=== PATIENT | female | born 1945 ===

== ENCOUNTER 2019-12-11 15:39 | Inpatient (IN) ==
[2019-12-11] MEDS ORDERED: GLUCAGON 1 MG VIAL IM PRN (17:27)
[2019-12-11] MEDS ORDERED: DEXTROSE 50% 25 GM/50 ML VIAL IV PRN (17:27)
[2019-12-11] MEDS ORDERED: POTASSIUM CHLORIDE 20 MEQ TABLET PO PRN ×2 (17:33)
[2019-12-11] MEDS ORDERED: MAGNESIUM SULF RIDER 4 GM in PREMIX 1 EACH IV PRN (17:33)
[2019-12-11] MEDS ORDERED: MAGNESIUM SULF RIDER 2 GM in PREMIX 1 EACH IV PRN (17:33)
[2019-12-11] MEDS ORDERED: ONDANSETRON 4 MG/2 ML VIAL IV PRN (17:33)
[2019-12-11 18:14] LABS: Basophils % 0.4 % (0.0-0.8); Eosinophils # 0.1 10*3/uL (0.0-0.87); Eosinophils % 0.7 % (0.00-10.9); Hematocrit 40.9 VOL% (35.7-47.0); Immature Granulocytes % 0.6 %; Immature Granulocytes Absolute 0.04 #; Lymphocytes # 1.5 10*3/uL (1.4-4.0); Lymphocytes % 22.2 % (21.3-54.2); Mean Corpuscular HGB Conc 34.2 GM/DL (32-36); Mean Corpuscular Volume 94.9 FL (87-102); Mean Platelet Volume 9.4 FL (9.6-12.0); Monocytes % 6.2 % (1.7-12.7); Neutrophils % 69.9 % (38.7-73.9); Platelet Count 212 T/CUMM (130-400); Red Blood Count 4.31 MC/CUMM (3.8-5.5); Red Cell Distribution Width 13.2 % (9.3-17.3); White Blood Count 6.8 T/CUMM (4-12)
[2019-12-11] MEDS: SODIUM CHLORIDE 0.9% 1,000 ML IV SCH (18:15)
[2019-12-11] MEDS: ENOXAPARIN 60 MG/0.6 ML SYRINGE SUBCUT SCH (18:15)
[2019-12-11 18:46] LABS: Thyroid Stimulating Hormone 0.883 uIU/ml (0.358-3.74)
[2019-12-11 18:56] LABS: Alanine Aminotransferase 51 U/L (13-56); Albumin 3.6 G/DL (3.4-5.0); Alkaline Phosphatase 119 U/L (45-117); Aspartate Amino Transferase 43 U/L (0-37); Bilirubin,Total < 0.39 MG/DL (0.2-1.0); Blood Urea Nitrogen 13 MG/DL (7-18); Calcium 8.4 MG/DL (8.5-10.1); Estimated Glom Filtration Rate 78 ML/MIN; Glucose 155 MG/DL (74-106); Osmolality,Calculated 283.3 MOS/KG (273-304); Total Protein 6.9 G/DL (6.4-8.3)
[2019-12-11] MEDS ORDERED: TICAGRELOR 90 MG TABLET PO ONE (19:04)
[2019-12-11] MEDS ORDERED: ATORVASTATIN 40 MG TABLET PO ONE (19:07)
[2019-12-11 20:50] LABS: CKMB % 3.3 %
[2019-12-11] MEDS: METOPROLOL TARTRATE 25 MG TABLET PO SCH (20:51)
[2019-12-11] MEDS: INSULIN LISPRO 100 UNIT/ML SUBCUT SCH (20:52)
[2019-12-11] MEDS: ATORVASTATIN 40 MG TABLET PO SCH (20:52)
[2019-12-11 20:54] LABS: Troponin I 2.27 NG/ML (0.00-0.045)
[2019-12-12] MEDS: SODIUM CHLORIDE 0.9% 1,000 ML IV SCH ×4 (03:32→22:10)
[2019-12-12 06:04] LABS: Basophils % 0.5 % (0.0-0.8); Eosinophils # 0.1 10*3/uL (0.0-0.87); Eosinophils % 1.2 % (0.00-10.9); Hemoglobin 13.7 GM/DL (12.0-16.0); Immature Granulocytes % 0.9 %; Immature Granulocytes Absolute 0.05 #; Lymphocytes # 1.4 10*3/uL (1.4-4.0); Lymphocytes % 23.9 % (21.3-54.2); Mean Corpuscular HGB Conc 33.4 GM/DL (32-36); Mean Corpuscular Volume 94.7 FL (87-102); Mean Platelet Volume 9.6 FL (9.6-12.0); Monocytes % 7.3 % (1.7-12.7); Neutrophils % 66.2 % (38.7-73.9); Platelet Count 196 T/CUMM (130-400); Red Blood Count 4.33 MC/CUMM (3.8-5.5); Red Cell Distribution Width 13.2 % (9.3-17.3); White Blood Count 5.8 T/CUMM (4-12)
[2019-12-12 06:27] LABS: CKMB % 3.1 %
[2019-12-12 06:28] LABS: Bilirubin,Total 0.9 MG/DL (0.2-1.0); Osmolality,Calculated 281.1 MOS/KG (273-304); Risk Ratio 3.71; Total Protein 6.7 G/DL (6.4-8.3); VLDL CHOLESTEROL 35.4 MG/DL
[2019-12-12 06:28] LABS: Troponin I 1.88 NG/ML (0.00-0.045)
[2019-12-12] MEDS: ENOXAPARIN 60 MG/0.6 ML SYRINGE SUBCUT SCH (06:49)
[2019-12-12] MEDS: INSULIN LISPRO 100 UNIT/ML SUBCUT SCH ×4 (08:05→22:10)
[2019-12-12 08:06] LABS: Bilirubin,Urine Negative (Negative); Blood, Urine Negative (Negative); Glucose,Urine (UA) Negative (Negative); Ketones,Urine Negative (Negative); Mucus,Urine Occasional /LPF (Occasional); Nitrite,Urine Negative (Negative); Protein,Urine Negative; RBC,Urine <1 /HPF (0-4); Urine Appearance CLEAR (Clear); Urine Color Straw (Yellow); Urine Specific Gravity 1.005 (1.001-1.035); Urine Urobilinogen < 2.0 EU/DL (0.2-1.0); WBC,Urine <1 /HPF (0-6)
[2019-12-12] MEDS ORDERED: TICAGRELOR 90 MG TABLET PO SCH (09:00)
[2019-12-12] MEDS: METOPROLOL TARTRATE 25 MG TABLET PO SCH ×2 (09:39→22:10)
[2019-12-12] MEDS: LOSARTAN 25 MG TABLET PO SCH (09:39)
[2019-12-12] MEDS: ASPIRIN EC 81 MG TABLET PO SCH (09:39)
[2019-12-12] MEDS: PANTOPRAZOLE 40 MG TABLET PO SCH (09:39)
[2019-12-12] MEDS ORDERED: HEPARIN/NACL 0.9% 2 UNITS/ML 1,000 ML IV ONE (12:44)
[2019-12-12] MEDS ORDERED: LIDOCAINE 1% 20 ML VIAL ONE (12:44)
[2019-12-12] MEDS ORDERED: DIAZEPAM 5 MG TABLET PO ONE (12:55)
[2019-12-12] MEDS ORDERED: diphenhydrAMINE CAP 25 MG CAPSULE PO ONE (12:55)
[2019-12-12] MEDS ORDERED: fentaNYL 100 MCG/2 ML VIAL ONE (13:14)
[2019-12-12] MEDS ORDERED: MIDAZOLAM 2 MG/2 ML VIAL ONE (13:14)
[2019-12-12] MEDS ORDERED: DEXTROSE 50% 25 GM/50 ML VIAL IV PRN (14:46)
[2019-12-12] MEDS: MORPHINE 4 MG/1 ML VIAL IV PRN (18:54)
[2019-12-12] MEDS: ALUM/MAG/SIMETH/LIDO VISC 1:1 30 ML BOTTLE PO PRN (19:02)
[2019-12-12 20:15] LABS: Troponin I 0.795 NG/ML (0.00-0.045)
[2019-12-12] MEDS ORDERED: NITROGLYCERIN 2% OINT 1 INCH/GM PACK TOP PRN (20:32)
[2019-12-12] MEDS ORDERED: NITROGLYCERIN SL 0.4 MG TABLET SL ONE (20:42)
[2019-12-12] MEDS: NITROGLYCERIN SL 0.4 MG TABLET SL PRN (20:43)
[2019-12-12] MEDS: RANOLAZINE 500 MG TABLET PO SCH (22:10)
[2019-12-12] MEDS: ATORVASTATIN 40 MG TABLET PO SCH (22:10)
[2019-12-12] MEDS ORDERED: SODIUM CHLORIDE 0.9% 500 ML IV ONE (22:27)
[2019-12-13 05:10] LABS: Basophils % 0.3 % (0.0-0.8); Eosinophils % 0.5 % (0.00-10.9); Hematocrit 38.1 VOL% (35.7-47.0); Hemoglobin 12.9 GM/DL (12.0-16.0); Immature Granulocytes % 0.8 %; Immature Granulocytes Absolute 0.05 #; Lymphocytes # 1.3 10*3/uL (1.4-4.0); Lymphocytes % 19.9 % (21.3-54.2); Mean Corpuscular HGB Conc 33.9 GM/DL (32-36); Mean Corpuscular Volume 95.5 FL (87-102); Mean Platelet Volume 9.7 FL (9.6-12.0); Monocytes % 8.8 % (1.7-12.7); Neutrophils % 69.7 % (38.7-73.9); Platelet Count 173 T/CUMM (130-400); Red Blood Count 3.99 MC/CUMM (3.8-5.5); Red Cell Distribution Width 13.2 % (9.3-17.3); White Blood Count 6.4 T/CUMM (4-12)
[2019-12-13 05:35] LABS: Calcium 7.9 MG/DL (8.5-10.1); Osmolality,Calculated 280.3 MOS/KG (273-304)
[2019-12-13 05:54] LABS: Albumin 2.9 G/DL (3.4-5.0); Bilirubin,Total 0.5 MG/DL (0.2-1.0); Calcium 8.1 MG/DL (8.5-10.1); Osmolality,Calculated 275.5 MOS/KG (273-304); Total Protein 6.3 G/DL (6.4-8.3)
[2019-12-13] MEDS: INSULIN LISPRO 100 UNIT/ML SUBCUT SCH ×4 (08:23→21:00)
[2019-12-13] MEDS: MORPHINE 4 MG/1 ML VIAL IV PRN ×2 (09:06→21:04)
[2019-12-13] MEDS: ENOXAPARIN 40 MG/0.4 ML SYRINGE SUBCUT SCH (09:11)
[2019-12-13] MEDS: METOPROLOL TARTRATE 25 MG TABLET PO SCH ×2 (09:12→21:04)
[2019-12-13] MEDS: ISOSORBIDE MONONITRATE 30 MG TABLET PO SCH (09:12)
[2019-12-13] MEDS: RANOLAZINE 500 MG TABLET PO SCH ×2 (09:12→21:04)
[2019-12-13] MEDS: DONEPEZIL 5 MG TABLET PO SCH (09:13)
[2019-12-13] MEDS: PANTOPRAZOLE 40 MG TABLET PO SCH (09:13)
[2019-12-13] MEDS: LOSARTAN 25 MG TABLET PO SCH (09:14)
[2019-12-13] MEDS: ASPIRIN EC 81 MG TABLET PO SCH (09:16)
[2019-12-13] MEDS: SODIUM CHLORIDE 0.9% 1,000 ML IV SCH ×2 (10:15→23:36)
[2019-12-13] MEDS: ATORVASTATIN 40 MG TABLET PO SCH (21:04)
[2019-12-14] MEDS: MORPHINE 4 MG/1 ML VIAL IV PRN ×2 (03:26→08:54)
[2019-12-14 05:28] LABS: Basophils % 0.3 % (0.0-0.8); Eosinophils # 0.1 10*3/uL (0.0-0.87); Eosinophils % 0.9 % (0.00-10.9); Hematocrit 36.9 VOL% (35.7-47.0); Hemoglobin 12.5 GM/DL (12.0-16.0); Immature Granulocytes % 0.8 %; Immature Granulocytes Absolute 0.05 #; Lymphocytes % 15.6 % (21.3-54.2); Mean Corpuscular HGB Conc 33.9 GM/DL (32-36); Mean Corpuscular Volume 94.1 FL (87-102); Mean Platelet Volume 9.7 FL (9.6-12.0); Monocytes % 7.7 % (1.7-12.7); Neutrophils % 74.7 % (38.7-73.9); Platelet Count 168 T/CUMM (130-400); Red Blood Count 3.92 MC/CUMM (3.8-5.5); Red Cell Distribution Width 13.2 % (9.3-17.3); White Blood Count 6.5 T/CUMM (4-12)
[2019-12-14 06:03] LABS: Calcium 7.9 MG/DL (8.5-10.1); Osmolality,Calculated 277.5 MOS/KG (273-304)
[2019-12-14] MEDS: ENOXAPARIN 40 MG/0.4 ML SYRINGE SUBCUT SCH (08:55)
[2019-12-14] MEDS: RANOLAZINE 500 MG TABLET PO SCH ×2 (08:56→21:03)
[2019-12-14] MEDS: ASPIRIN EC 81 MG TABLET PO SCH (08:56)
[2019-12-14] MEDS: ISOSORBIDE MONONITRATE 30 MG TABLET PO SCH (08:56)
[2019-12-14] MEDS: DONEPEZIL 5 MG TABLET PO SCH (08:56)
[2019-12-14] MEDS: INSULIN LISPRO 100 UNIT/ML SUBCUT SCH ×4 (08:56→21:04)
[2019-12-14] MEDS: LOSARTAN 25 MG TABLET PO SCH (08:56)
[2019-12-14] MEDS: PANTOPRAZOLE 40 MG TABLET PO SCH (08:56)
[2019-12-14] MEDS: METOPROLOL TARTRATE 25 MG TABLET PO SCH ×2 (08:57→21:03)
[2019-12-14] MEDS: ALUM/MAG/SIMETH/LIDO VISC 1:1 30 ML BOTTLE PO PRN (09:53)
[2019-12-14] MEDS: NITROGLYCERIN SL 0.4 MG TABLET SL PRN (09:53)
[2019-12-14] MEDS ORDERED: FUROSEMIDE 20 MG/2 ML VIAL IV ONE (10:25)
[2019-12-14] MEDS: ACETAMINOPHEN 325 MG TABLET PO PRN (21:04)
[2019-12-14] MEDS: ATORVASTATIN 40 MG TABLET PO SCH (21:04)
[2019-12-15 05:51] LABS: Basophils % 0.3 % (0.0-0.8); Eosinophils # 0.1 10*3/uL (0.0-0.87); Eosinophils % 0.8 % (0.00-10.9); Hematocrit 35.7 VOL% (35.7-47.0); Hemoglobin 11.9 GM/DL (12.0-16.0); Immature Granulocytes % 0.5 %; Immature Granulocytes Absolute 0.03 #; Lymphocytes # 1.3 10*3/uL (1.4-4.0); Lymphocytes % 21.2 % (21.3-54.2); Mean Corpuscular HGB Conc 33.3 GM/DL (32-36); Mean Corpuscular Volume 94.2 FL (87-102); Mean Platelet Volume 9.8 FL (9.6-12.0); Monocytes % 7.7 % (1.7-12.7); Neutrophils % 69.5 % (38.7-73.9); Platelet Count 173 T/CUMM (130-400); Red Blood Count 3.79 MC/CUMM (3.8-5.5); Red Cell Distribution Width 13.2 % (9.3-17.3); White Blood Count 6.2 T/CUMM (4-12)
[2019-12-15 06:16] LABS: Calcium 8.5 MG/DL (8.5-10.1); Osmolality,Calculated 278.4 MOS/KG (273-304)
[2019-12-15] MEDS: ASPIRIN EC 81 MG TABLET PO SCH (09:19)
[2019-12-15] MEDS: RANOLAZINE 500 MG TABLET PO SCH ×2 (09:19→21:08)
[2019-12-15] MEDS: PANTOPRAZOLE 40 MG TABLET PO SCH (09:19)
[2019-12-15] MEDS: ISOSORBIDE MONONITRATE 30 MG TABLET PO SCH (09:20)
[2019-12-15] MEDS: DONEPEZIL 5 MG TABLET PO SCH (09:20)
[2019-12-15] MEDS: ENOXAPARIN 40 MG/0.4 ML SYRINGE SUBCUT SCH (09:21)
[2019-12-15] MEDS: METOPROLOL TARTRATE 25 MG TABLET PO SCH ×2 (09:21→21:08)
[2019-12-15] MEDS: LOSARTAN 25 MG TABLET PO SCH (09:21)
[2019-12-15] MEDS: INSULIN LISPRO 100 UNIT/ML SUBCUT SCH ×4 (09:28→21:09)
[2019-12-15] MEDS: ASCORBIC ACID 500 MG TABLET PO SCH (21:08)
[2019-12-15] MEDS: ATORVASTATIN 40 MG TABLET PO SCH (21:08)
[2019-12-15] MEDS: ACETAMINOPHEN 325 MG TABLET PO PRN (21:52)
[2019-12-16] MEDS: ALUM/MAG/SIMETH/LIDO VISC 1:1 30 ML BOTTLE PO PRN (05:08)
[2019-12-16 05:59] LABS: Basophils % 0.5 % (0.0-0.8); Eosinophils # 0.1 10*3/uL (0.0-0.87); Hematocrit 38.1 VOL% (35.7-47.0); Hemoglobin 13.1 GM/DL (12.0-16.0); Immature Granulocytes % 0.7 %; Immature Granulocytes Absolute 0.04 #; Lymphocytes # 1.4 10*3/uL (1.4-4.0); Lymphocytes % 22.9 % (21.3-54.2); Mean Corpuscular HGB Conc 34.4 GM/DL (32-36); Mean Corpuscular Volume 92.7 FL (87-102); Mean Platelet Volume 9.8 FL (9.6-12.0); Monocytes % 8.4 % (1.7-12.7); Neutrophils % 66.5 % (38.7-73.9); Platelet Count 177 T/CUMM (130-400); Red Blood Count 4.11 MC/CUMM (3.8-5.5); Red Cell Distribution Width 13.2 % (9.3-17.3); White Blood Count 5.9 T/CUMM (4-12)
[2019-12-16 06:20] LABS: Calcium 8.7 MG/DL (8.5-10.1); Osmolality,Calculated 279.4 MOS/KG (273-304)
[2019-12-16] MEDS: INSULIN LISPRO 100 UNIT/ML SUBCUT SCH ×4 (09:02→20:57)
[2019-12-16] MEDS: ENOXAPARIN 40 MG/0.4 ML SYRINGE SUBCUT SCH (09:04)
[2019-12-16] MEDS: RANOLAZINE 500 MG TABLET PO SCH ×2 (09:04→20:53)
[2019-12-16] MEDS: ASPIRIN EC 81 MG TABLET PO SCH (09:05)
[2019-12-16] MEDS: METOPROLOL TARTRATE 25 MG TABLET PO SCH ×2 (09:05→20:52)
[2019-12-16] MEDS: ASCORBIC ACID 500 MG TABLET PO SCH ×2 (09:05→20:52)
[2019-12-16] MEDS: DONEPEZIL 5 MG TABLET PO SCH (09:06)
[2019-12-16] MEDS: LOSARTAN 25 MG TABLET PO SCH (09:06)
[2019-12-16] MEDS: ISOSORBIDE MONONITRATE 30 MG TABLET PO SCH (09:06)
[2019-12-16] MEDS: PANTOPRAZOLE 40 MG TABLET PO SCH (09:06)
[2019-12-16] MEDS: ATORVASTATIN 40 MG TABLET PO SCH (20:53)
[2019-12-16] MEDS: ACETAMINOPHEN 325 MG TABLET PO PRN (20:53)
[2019-12-16] MEDS: MORPHINE 4 MG/1 ML VIAL IV PRN (22:22)
[2019-12-17 05:32] LABS: Basophils % 0.4 % (0.0-0.8); Eosinophils # 0.1 10*3/uL (0.0-0.87); Eosinophils % 1.4 % (0.00-10.9); Hematocrit 36.5 VOL% (35.7-47.0); Hemoglobin 12.5 GM/DL (12.0-16.0); Immature Granulocytes % 0.4 %; Immature Granulocytes Absolute 0.02 #; Lymphocytes # 1.6 10*3/uL (1.4-4.0); Lymphocytes % 28.4 % (21.3-54.2); Mean Corpuscular HGB Conc 34.2 GM/DL (32-36); Mean Corpuscular Volume 92.9 FL (87-102); Mean Platelet Volume 10.1 FL (9.6-12.0); Monocytes % 7.5 % (1.7-12.7); Neutrophils % 61.9 % (38.7-73.9); Platelet Count 176 T/CUMM (130-400); Red Blood Count 3.93 MC/CUMM (3.8-5.5); Red Cell Distribution Width 13.2 % (9.3-17.3); White Blood Count 5.7 T/CUMM (4-12)
[2019-12-17 05:55] LABS: Calcium 8.3 MG/DL (8.5-10.1); Osmolality,Calculated 278.4 MOS/KG (273-304)
[2019-12-17 06:04] LABS: Albumin 3.1 G/DL (3.4-5.0); Bilirubin,Total 0.8 MG/DL (0.2-1.0); Calcium 8.8 MG/DL (8.5-10.1); Osmolality,Calculated 276.5 MOS/KG (273-304); Total Protein 6.4 G/DL (6.4-8.3)
[2019-12-17 09:07] LABS: ABG Oxygen Saturation 98.8 % (95-100); ABG PCO2 37.7 MM HG (35-48); ABG PH 7.474 (7.35-7.45); ABG TCO2 24.1 MMOL/L (23-27); Allen Test Negative
[2019-12-17] MEDS: NITROGLYCERIN SL 0.4 MG TABLET SL PRN ×3 (10:05→10:15)
[2019-12-17] MEDS: PANTOPRAZOLE 40 MG TABLET PO SCH (10:17)
[2019-12-17] MEDS: ASCORBIC ACID 500 MG TABLET PO SCH ×2 (10:17→21:41)
[2019-12-17] MEDS ORDERED: POTASSIUM CHLORIDE 20 MEQ TABLET PO ONE (10:17)
[2019-12-17] MEDS: LOSARTAN 25 MG TABLET PO SCH (10:18)
[2019-12-17] MEDS: DONEPEZIL 5 MG TABLET PO SCH (10:18)
[2019-12-17] MEDS: ISOSORBIDE MONONITRATE 30 MG TABLET PO SCH (10:18)
[2019-12-17] MEDS: RANOLAZINE 500 MG TABLET PO SCH ×2 (10:19→21:42)
[2019-12-17] MEDS: ALUM/MAG/SIMETH/LIDO VISC 1:1 30 ML BOTTLE PO PRN ×2 (10:23→19:29)
[2019-12-17] MEDS: CHLORHEXIDINE 4% SOLN 118 ML BOTTLE TOP SCH ×3 (10:25→21:44)
[2019-12-17] MEDS: ASPIRIN EC 81 MG TABLET PO SCH (10:25)
[2019-12-17] MEDS: METOPROLOL TARTRATE 25 MG TABLET PO SCH ×2 (10:25→21:41)
[2019-12-17] MEDS: INSULIN LISPRO 100 UNIT/ML SUBCUT SCH ×4 (10:25→21:43)
[2019-12-17] MEDS: SODIUM CHLORIDE 0.9% 1,000 ML IV SCH (10:26)
[2019-12-17] MEDS: CHLORHEXIDINE 0.12% ORAL RINSE 60 ML BOTTLE SWISH/SPIT SCH ×2 (10:26→21:43)
[2019-12-17] MEDS: MORPHINE 4 MG/1 ML VIAL IV PRN (19:29)
[2019-12-17] MEDS: ACETAMINOPHEN 325 MG TABLET PO PRN (21:42)
[2019-12-17] MEDS: ATORVASTATIN 40 MG TABLET PO SCH (21:43)
[2019-12-18] MEDS ORDERED: PAPAVERINE 60 MG/2 ML VIAL ONE (04:22)
[2019-12-18] MEDS ORDERED: VANCOMYCIN 1,000 MG VIAL ONE (04:23)
[2019-12-18] MEDS ORDERED: VANCOMYCIN 500 MG VIAL ONE (04:23)
[2019-12-18] MEDS ORDERED: VANCOMYCIN INJ 1,000 MG in SODIUM CHLORIDE 0.9% 250 ML IV ONE (05:00)
[2019-12-18] MEDS ORDERED: DIAZEPAM 5 MG TABLET PO ONE (05:30)
[2019-12-18] MEDS ORDERED: FAMOTIDINE 20 MG TABLET PO ONE (05:30)
[2019-12-18 05:46] LABS: Basophils % 0.4 % (0.0-0.8); Eosinophils # 0.1 10*3/uL (0.0-0.87); Eosinophils % 0.7 % (0.00-10.9); Hematocrit 39.5 VOL% (35.7-47.0); Hemoglobin 13.6 GM/DL (12.0-16.0); Immature Granulocytes % 0.5 %; Immature Granulocytes Absolute 0.04 #; Lymphocytes # 1.7 10*3/uL (1.4-4.0); Mean Corpuscular HGB Conc 34.4 GM/DL (32-36); Mean Corpuscular Volume 93.4 FL (87-102); Monocytes % 7.1 % (1.7-12.7); Neutrophils % 69.3 % (38.7-73.9); Platelet Count 212 T/CUMM (130-400); Red Blood Count 4.23 MC/CUMM (3.8-5.5); Red Cell Distribution Width 13.3 % (9.3-17.3); White Blood Count 7.5 T/CUMM (4-12)
[2019-12-18] MEDS: METOPROLOL TARTRATE 25 MG TABLET PO SCH ×2 (05:48→09:00)
[2019-12-18] MEDS ORDERED: CALCIUM CHLORIDE 1,000 MG/10 ML VIAL IV ONE ×2 (05:53→12:29)
[2019-12-18] MEDS ORDERED: SUFentanil 250 MCG/5 ML AMP ONE (05:54)
[2019-12-18] MEDS ORDERED: VECURONIUM 10 MG VIAL IV ONE (05:54)
[2019-12-18] MEDS ORDERED: MINERAL OIL/PETROLATUM OPH OINT 3.5 GM TUBE ONE (05:54)
[2019-12-18] MEDS ORDERED: diphenhydrAMINE 50 MG/1 ML VIAL ONE (05:54)
[2019-12-18] MEDS ORDERED: MIDAZOLAM 10 MG/2 ML VIAL ONE ×2 (05:54)
[2019-12-18] MEDS ORDERED: AMINOCAPROIC ACID 5,000 MG/20 ML VIAL ONE (05:54)
[2019-12-18] MEDS ORDERED: FAMOTIDINE 20 MG/2 ML VIAL IV ONE (05:55)
[2019-12-18] MEDS ORDERED: LIDOCAINE 2% 5 ML VIAL ONE ×2 (05:55→10:46)
[2019-12-18 06:03] LABS: Osmolality,Calculated 276.7 MOS/KG (273-304)
[2019-12-18] MEDS: INSULIN LISPRO 100 UNIT/ML SUBCUT SCH ×2 (07:30→11:30)
[2019-12-18] MEDS: SODIUM CHLORIDE 0.9% 1,000 ML IV SCH (07:30)
[2019-12-18 07:41] LABS: ABG HCO3 24.5 MMOL/L (20-26); ABG PCO2 45.1 MM HG (35-48); ABG PH 7.364 (7.35-7.45); ABG TCO2 23.1 MMOL/L (23-27); Glucose Heart Surgery 167 MG/DL (74-106); Ionized Calcium Arterial 1.42 MMOL/L (1.21-1.46); PCO2 Patient Temp Arterial 45.1 MMHG; PH Patient Temp Arterial 7.364; Patient Temperature 37 CELCIUS; Potassium Heart/CVR 4.1 MMOL/L (3.5-5.1); Sodium Heart/CVR 139 MMOL/L (135-145)
[2019-12-18] MEDS ORDERED: NITROPRUSSIDE 50 MG/2 ML VIAL ONE (08:04)
[2019-12-18] MEDS ORDERED: PHENYLEPHRINE DRIP 40 MG/250 ML PREMIX IV ONE (08:05)
[2019-12-18] MEDS ORDERED: POTASSIUM CHLORIDE RIDER 100 ML IV ONE (08:05)
[2019-12-18] MEDS ORDERED: SODIUM BICARBONATE 50 MEQ/50 ML VIAL IV ONE ×2 (08:05→10:47)
[2019-12-18 08:11] LABS: Bilirubin,Urine Negative (Negative); Blood, Urine Negative (Negative); Glucose,Urine (UA) Negative (Negative); Ketones,Urine 20 mg/dL (Negative); Mucus,Urine Occasional /LPF (Occasional); Nitrite,Urine Negative (Negative); Protein,Urine Negative; RBC,Urine 1 /HPF (0-4); Squamous Epithelial Cell,Urine Occasional /HPF (0-10); Urine Appearance CLEAR (Clear); Urine Color Yellow (Yellow); Urine Specific Gravity 1.016 (1.001-1.035); Urine Urobilinogen < 2.0 EU/DL (0.2-1.0); WBC,Urine 1 /HPF (0-6)
[2019-12-18 08:33] LABS: PCO2 Patient Temp Venous 35.3 MM HG; PH Patient Temp Venous 7.446; PO2 Patient Temp Venous 39.9 MM HG; Potassium Heart/CVR 4.9 MMOL/L (3.5-5.1); VBG Base Excess 0.5 MEQ/L (0-4); VBG HCO3 24.7 MEQ/L (24-28); VBG Oxygen Saturation 78.3 %; VBG PH 7.432; VBG PO2 42.8 MMHG (17-40)
[2019-12-18 08:34] LABS: Hematocrit Heart Surgery 17.3 PERCENT (37-47); Hemoglobin Heart Surgery 5.5 G/DL (12.0-16.0)
[2019-12-18] MEDS: RANOLAZINE 500 MG TABLET PO SCH (09:00)
[2019-12-18] MEDS: ISOSORBIDE MONONITRATE 30 MG TABLET PO SCH (09:00)
[2019-12-18] MEDS: ASPIRIN EC 81 MG TABLET PO SCH (09:00)
[2019-12-18] MEDS: PANTOPRAZOLE 40 MG TABLET PO SCH (09:00)
[2019-12-18] MEDS: DONEPEZIL 5 MG TABLET PO SCH (09:00)
[2019-12-18] MEDS: ASCORBIC ACID 500 MG TABLET PO SCH (09:00)
[2019-12-18] MEDS: CHLORHEXIDINE 0.12% ORAL RINSE 60 ML BOTTLE SWISH/SPIT SCH ×2 (09:00→21:46)
[2019-12-18] MEDS: LOSARTAN 25 MG TABLET PO SCH (09:00)
[2019-12-18 09:04] LABS: Hematocrit Heart Surgery 20.2 PERCENT (37-47); PCO2 Patient Temp Venous 27.7 MM HG; PH Patient Temp Venous 7.541; PO2 Patient Temp Venous 33.8 MM HG; Potassium Heart/CVR 4.4 MMOL/L (3.5-5.1); VBG Base Excess 1.6 MEQ/L (0-4); VBG HCO3 25.7 MEQ/L (24-28); VBG Oxygen Saturation 80.3 %; VBG PH 7.496; VBG PO2 41.7 MMHG (17-40)
[2019-12-18 09:05] LABS: Hemoglobin Heart Surgery 6.4 G/DL (12.0-16.0)
[2019-12-18 09:29] LABS: Hematocrit Heart Surgery 27.3 PERCENT (37-47); Hemoglobin Heart Surgery 8.8 G/DL (12.0-16.0); PCO2 Patient Temp Venous 25.6 MM HG; PH Patient Temp Venous 7.533; PO2 Patient Temp Venous 35.6 MM HG; Potassium Heart/CVR 4.6 MMOL/L (3.5-5.1); VBG Base Excess -0.4 MEQ/L (0-4); VBG HCO3 23.9 MEQ/L (24-28); VBG Oxygen Saturation 85.1 %; VBG PCO2 29.5 MMHG (41-51); VBG PH 7.487; VBG PO2 43.8 MMHG (17-40)
[2019-12-18 09:58] LABS: Hematocrit Heart Surgery 28.9 PERCENT (37-47); Hemoglobin Heart Surgery 9.3 G/DL (12.0-16.0); PCO2 Patient Temp Venous 28.6 MM HG; PH Patient Temp Venous 7.509; PO2 Patient Temp Venous 36.9 MM HG; Potassium Heart/CVR 4.7 MMOL/L (3.5-5.1); VBG Base Excess 0.4 MEQ/L (0-4); VBG HCO3 24.4 MEQ/L (24-28); VBG PCO2 28.6 MMHG (41-51); VBG PH 7.509; VBG PO2 36.9 MMHG (17-40)
[2019-12-18] MEDS ORDERED: THROMBIN TOPICAL (RECOMBINANT) 5,000 UNIT VIAL TOP ONE (10:04)
[2019-12-18] MEDS ORDERED: DEXTROSE 5% KCL 20 MEQ 20 MEQ/1,000 ML BAG IV ONE (10:46)
[2019-12-18] MEDS ORDERED: MANNITOL 100 GM/500 ML BAG IV ONE (10:46)
[2019-12-18] MEDS ORDERED: FUROSEMIDE 20 MG/2 ML VIAL ONE (10:47)
[2019-12-18] MEDS ORDERED: MAGNESIUM SULFATE 5 GM/10 ML VIAL IV ONE (10:47)
[2019-12-18] MEDS ORDERED: ALBUMIN 25% 25 GM/100 ML VIAL IV ONE (10:47)
[2019-12-18] MEDS ORDERED: HEPARIN 10,000 UNIT/10 ML VIAL ONE (10:47)
[2019-12-18] MEDS ORDERED: methylPREDNISolone SOD SUC 1,000 MG/8 ML VIAL ONE (10:47)
[2019-12-18] MEDS ORDERED: PROTAMINE SULFATE 250 MG/25 ML VIAL IV ONE (10:47)
[2019-12-18 10:56] LABS: ABG Base Excess -2.6 MMOL/L (-2.5-2.5); ABG HCO3 22.2 MMOL/L (20-26); ABG PCO2 34.2 MM HG (35-48); ABG PH 7.407 (7.35-7.45); ABG TCO2 19.8 MMOL/L (23-27); Glucose Heart Surgery 369 MG/DL (74-106); Hematocrit Heart Surgery 27.8 PERCENT (37-47); PCO2 Patient Temp Arterial 34.2 MMHG; PH Patient Temp Arterial 7.407; Patient Temperature 37 CELCIUS; Potassium Heart/CVR 3.9 MMOL/L (3.5-5.1); Sodium Heart/CVR 135 MMOL/L (135-145)
[2019-12-18] MEDS: DOBUTamine 500 MG/250 ML PREMIX IV SCH (12:15)
[2019-12-18] MEDS: SODIUM CHLORIDE 0.45% 1,000 ML IV SCH ×2 (12:15)
[2019-12-18] MEDS: PHENYLEPHRINE DRIP 40 MG/250 ML PREMIX IV PRN ×2 (12:15→19:09)
[2019-12-18] MEDS: POTASSIUM CHLORIDE RIDER 20 MEQ in PREMIX 1 EACH IV PRN ×3 (12:25→16:39)
[2019-12-18] MEDS ORDERED: HEPARIN/NACL 0.9% 2 UNITS/ML 500 ML IV ONE (12:29)
[2019-12-18] MEDS ORDERED: PHENYLEPHRINE DRIP 20 MG/250 ML PREMIX IV ONE (12:29)
[2019-12-18] MEDS ORDERED: EPINEPHrine 1 MG/10 ML SYRINGE ONE (12:29)
[2019-12-18] MEDS ORDERED: SODIUM CHLORIDE 0.9% 2,000 ML IV ONE (12:30)
[2019-12-18] MEDS ORDERED: ETOMIDATE 40 MG/20 ML VIAL IV ONE (12:30)
[2019-12-18] MEDS ORDERED: LACTATED RINGERS 1,000 ML IV ONE (12:30)
[2019-12-18] MEDS ORDERED: ePHEDrine 50 MG/ML VIAL ONE (12:30)
[2019-12-18] MEDS ORDERED: SEVOFLURANE 1 UNIT/15 MINUTE INH ONE (12:30)
[2019-12-18] MEDS ORDERED: SODIUM CHLORIDE 0.9% 500 ML IV ONE (12:30)
[2019-12-18] MEDS ORDERED: DEXTROSE 50% 25 GM/50 ML VIAL IV PRN ×2 (12:45)
[2019-12-18] MEDS ORDERED: MIDAZOLAM 10 MG/2 ML VIAL IV PRN (12:45)
[2019-12-18] MEDS ORDERED: NITROPRUSSIDE 100 MG in DEXTROSE 5% 250 ML IV PRN (12:45)
[2019-12-18] MEDS ORDERED: ONDANSETRON 4 MG/2 ML VIAL IV PRN (12:45)
[2019-12-18] MEDS ORDERED: ACETAMINOPHEN 650 MG SUPP RECTAL PRN (12:45)
[2019-12-18] MEDS ORDERED: MIDAZOLAM 2 MG/2 ML VIAL IV PRN (12:45)
[2019-12-18] MEDS ORDERED: VECURONIUM 10 MG VIAL IV PRN ×2 (12:45)
[2019-12-18] MEDS ORDERED: MORPHINE 10 MG/1 ML VIAL IV PRN (12:45)
[2019-12-18] MEDS ORDERED: MAGNESIUM SULF RIDER 4 GM in PREMIX 1 EACH IV PRN (12:45)
[2019-12-18] MEDS ORDERED: INSULIN REGULAR 100 UNIT/ML IV ONE (12:45)
[2019-12-18] MEDS ORDERED: POTASSIUM CHLORIDE RIDER 10 MEQ in PREMIX 1 EACH IV PRN (12:45)
[2019-12-18] MEDS ORDERED: CHLORHEXIDINE 4% SOLN 118 ML BOTTLE TOP PRN (12:45)
[2019-12-18] MEDS ORDERED: CALCIUM CHLORIDE 1,000 MG/10 ML SYRINGE IV PRN (12:45)
[2019-12-18] MEDS ORDERED: MAGNESIUM SULF RIDER 2 GM in PREMIX 1 EACH IV PRN (12:45)
[2019-12-18 12:47] LABS: ABG Base Excess -5.6 MMOL/L (-2.5-2.5); ABG HCO3 19.8 MMOL/L (20-26); ABG PH 7.353 (7.35-7.45); ABG TCO2 18.4 MMOL/L (23-27); Glucose Heart Surgery 392 MG/DL (74-106); Hematocrit Heart Surgery 21.5 PERCENT (37-47); Hemoglobin Heart Surgery 6.9 G/DL (12.0-16.0); Potassium Heart/CVR 3.5 MMOL/L (3.5-5.1)
[2019-12-18 12:52] LABS: Basophils % 0.1 % (0.0-0.8); Eosinophils % 0.2 % (0.00-10.9); Hematocrit 19.3 VOL% (35.7-47.0); Hemoglobin 6.6 GM/DL (12.0-16.0); Immature Granulocytes % 1.2 %; Lymphocytes # 0.8 10*3/uL (1.4-4.0); Lymphocytes % 10.4 % (21.3-54.2); Mean Corpuscular HGB Conc 34.2 GM/DL (32-36); Mean Corpuscular Volume 94.6 FL (87-102); Mean Platelet Volume 10.3 FL (9.6-12.0); Monocytes % 4.6 % (1.7-12.7); Neutrophils % 83.5 % (38.7-73.9); Platelet Count 155 T/CUMM (130-400); Red Blood Count 2.04 MC/CUMM (3.8-5.5); Red Cell Distribution Width 14.6 % (9.3-17.3); White Blood Count 8.1 T/CUMM (4-12)
[2019-12-18 12:59] LABS: INR 1.2; PT Patient Result 12.7 SECS (9.8-11.9); Partial Thromboplastin Time 27.6 SECS (23.9-33.8)
[2019-12-18] MEDS: LACTATED RINGERS 250 ML IV PRN ×5 (13:00→15:40)
[2019-12-18 13:03] LABS: Albumin 2.4 G/DL (3.4-5.0); Bilirubin,Total 1.3 MG/DL (0.2-1.0); Calcium 9.6 MG/DL (8.5-10.1); Osmolality,Calculated 294.3 MOS/KG (273-304); Total Protein 4.8 G/DL (6.4-8.3)
[2019-12-18 13:31] LABS: Troponin I 69.2 NG/ML (0.00-0.045)
[2019-12-18 13:52] LABS: ABG Base Excess -4.6 MMOL/L (-2.5-2.5); ABG HCO3 20.6 MMOL/L (20-26); ABG PCO2 35.3 MM HG (35-48); ABG PH 7.366 (7.35-7.45); ABG TCO2 18.9 MMOL/L (23-27); Glucose Heart Surgery 380 MG/DL (74-106); Hematocrit Heart Surgery 24.3 PERCENT (37-47); Hemoglobin Heart Surgery 7.8 G/DL (12.0-16.0); Potassium Heart/CVR 5.8 MMOL/L (3.5-5.1)
[2019-12-18] MEDS: INSULIN REGULAR DRIP 100 ML IV SCH (13:55)
[2019-12-18] MEDS: INSULIN REGULAR 100 UNIT/ML IV PRN ×2 (15:00→15:55)
[2019-12-18 16:10] LABS: ABG PCO2 34.1 MM HG (35-48); ABG PH 7.374 (7.35-7.45)
[2019-12-18 16:11] LABS: ABG HCO3 19.4 MMOL/L (20-26); ABG Oxygen Saturation 98.4 % (95-100); ABG PO2 171.7 MM HG (80-95); ABG TCO2 20.5 MMOL/L (23-27); Glucose Heart Surgery 329 MG/DL (74-106); Hemoglobin Heart Surgery 12.2 G/DL (12.0-16.0); Potassium Heart/CVR 3.9 MMOL/L (3.5-5.1)
[2019-12-18] MEDS: ALBUMIN 5% 12.5 GM in PREMIX 1 EACH IV PRN (16:46)
[2019-12-18 18:09] LABS: ABG Base Excess -4.2 MMOL/L (-2.5-2.5); ABG HCO3 20.8 MMOL/L (20-26); ABG Oxygen Saturation 98.3 % (95-100); ABG PH 7.357 (7.35-7.45); ABG PO2 161.8 MM HG (80-95); Glucose Heart Surgery 265 MG/DL (74-106); Hemoglobin Heart Surgery 11.4 G/DL (12.0-16.0); Potassium Heart/CVR 4.7 MMOL/L (3.5-5.1)
[2019-12-18 22:07] LABS: CKMB % 7.2 %
[2019-12-18 22:08] LABS: Troponin I 47.6 NG/ML (0.00-0.045)
[2019-12-18] MEDS: MORPHINE 4 MG/1 ML VIAL IV PRN (22:18)
[2019-12-19] MEDS: VANCOMYCIN INJ 1,000 MG in SODIUM CHLORIDE 0.9% 250 ML IV SCH ×3 (01:26→23:47)
[2019-12-19] MEDS: FUROSEMIDE 40 MG/4 ML VIAL IV PRN ×2 (01:27→11:06)
[2019-12-19] MEDS: INSULIN REGULAR DRIP 100 ML IV SCH (01:48)
[2019-12-19 02:53] LABS: ABG Base Excess 0.6 MMOL/L (-2.5-2.5); ABG Oxygen Saturation 99.6 % (95-100); ABG PCO2 39.3 MM HG (35-48); ABG PH 7.412 (7.35-7.45); ABG TCO2 22.2 MMOL/L (23-27); Glucose Heart Surgery 166 MG/DL (74-106); Hematocrit Heart Surgery 36.6 PERCENT (37-47); Hemoglobin Heart Surgery 11.9 G/DL (12.0-16.0); Potassium Heart/CVR 3.9 MMOL/L (3.5-5.1)
[2019-12-19 03:39] LABS: ABG HCO3 25.4 MMOL/L (20-26); ABG Oxygen Saturation 99.6 % (95-100); ABG PCO2 34.5 MM HG (35-48); ABG PH 7.458 (7.35-7.45); ABG TCO2 21.7 MMOL/L (23-27); Glucose Heart Surgery 149 MG/DL (74-106); Hematocrit Heart Surgery 35.4 PERCENT (37-47); Hemoglobin Heart Surgery 11.5 G/DL (12.0-16.0); Potassium Heart/CVR 3.5 MMOL/L (3.5-5.1)
[2019-12-19] MEDS: PHENYLEPHRINE DRIP 40 MG/250 ML PREMIX IV PRN (03:51)
[2019-12-19 04:40] LABS: ABG Base Excess 0.6 MMOL/L (-2.5-2.5); ABG Oxygen Saturation 99.1 % (95-100); ABG PH 7.423 (7.35-7.45); ABG TCO2 22.1 MMOL/L (23-27); Glucose Heart Surgery 119 MG/DL (74-106); Hematocrit Heart Surgery 35.3 PERCENT (37-47); Hemoglobin Heart Surgery 11.5 G/DL (12.0-16.0); Potassium Heart/CVR 3.5 MMOL/L (3.5-5.1)
[2019-12-19] MEDS: POTASSIUM CHLORIDE RIDER 20 MEQ in PREMIX 1 EACH IV PRN (04:57)
[2019-12-19 05:18] LABS: Albumin 3.1 G/DL (3.4-5.0); Bilirubin,Direct 0.11 MG/DL (0.0-0.20); Bilirubin,Total 0.5 MG/DL (0.2-1.0); Total Protein 5.6 G/DL (6.4-8.3)
[2019-12-19 05:25] LABS: CKMB % 6.7 %
[2019-12-19 05:27] LABS: Troponin I 54.4 NG/ML (0.00-0.045)
[2019-12-19 05:40] LABS: ABG Base Excess 0.7 MMOL/L (-2.5-2.5); ABG Oxygen Saturation 99.3 % (95-100); ABG PCO2 39.9 MM HG (35-48); ABG PH 7.409 (7.35-7.45); ABG TCO2 22.6 MMOL/L (23-27); Glucose Heart Surgery 83 MG/DL (74-106); Hematocrit Heart Surgery 34.4 PERCENT (37-47); Hemoglobin Heart Surgery 11.2 G/DL (12.0-16.0); Potassium Heart/CVR 4.4 MMOL/L (3.5-5.1)
[2019-12-19] MEDS: ALBUMIN 5% 12.5 GM in PREMIX 1 EACH IV PRN ×2 (06:52→10:36)
[2019-12-19 07:05] LABS: Basophils % 0.1 % (0.0-0.8); Hematocrit 33.3 VOL% (35.7-47.0); Immature Granulocytes % 0.6 %; Immature Granulocytes Absolute 0.08 #; Lymphocytes # 0.6 10*3/uL (1.4-4.0); Lymphocytes % 4.2 % (21.3-54.2); Mean Corpuscular HGB Conc 33.9 GM/DL (32-36); Mean Corpuscular Volume 89.8 FL (87-102); Mean Platelet Volume 10.6 FL (9.6-12.0); Monocytes % 4.3 % (1.7-12.7); Neutrophils % 90.8 % (38.7-73.9); Platelet Count 169 T/CUMM (130-400); Red Cell Distribution Width 15.6 % (9.3-17.3)
[2019-12-19 07:06] LABS: Red Blood Count 3.71 MC/CUMM (3.8-5.5); White Blood Count 13.9 T/CUMM (4-12)
[2019-12-19 07:07] LABS: Hemoglobin 11.3 GM/DL (12.0-16.0)
[2019-12-19 07:15] LABS: Band Neutrophils 1 % (0-10); Hypochromasia Slight; Lymphocytes 2 % (20-55); Microcytosis Slight; Ovalocytes Slight; Platelet Estimate Adequate; Segmented Neutrophils 96 % (50-85); Total Cells Counted 100
[2019-12-19] MEDS: INSULIN REGULAR 100 UNIT/ML SUBCUT SCH ×5 (08:13→23:47)
[2019-12-19] MEDS: ASPIRIN EC 325 MG TABLET PO SCH (09:02)
[2019-12-19] MEDS: PANTOPRAZOLE 40 MG TABLET PO SCH (09:02)
[2019-12-19] MEDS: CHLORHEXIDINE 0.12% ORAL RINSE 60 ML BOTTLE SWISH/SPIT SCH ×2 (09:02→20:25)
[2019-12-19] MEDS: DOBUTamine 500 MG/250 ML PREMIX IV SCH (12:05)
[2019-12-19 13:37] LABS: CKMB % 5.7 %
[2019-12-19 13:43] LABS: Troponin I 38.9 NG/ML (0.00-0.045)
[2019-12-19] MEDS: SODIUM CHLORIDE 0.45% 1,000 ML IV SCH ×2 (13:49)
[2019-12-20] MEDS: MORPHINE 4 MG/1 ML VIAL IV PRN ×2 (00:40→04:50)
[2019-12-20] MEDS: INSULIN REGULAR 100 UNIT/ML SUBCUT SCH ×5 (04:31→20:52)
[2019-12-20 05:35] LABS: Basophils % 0.1 % (0.0-0.8); Hematocrit 25.6 VOL% (35.7-47.0); Hemoglobin 8.6 GM/DL (12.0-16.0); Immature Granulocytes % 0.6 %; Immature Granulocytes Absolute 0.06 #; Lymphocytes # 0.8 10*3/uL (1.4-4.0); Mean Corpuscular HGB Conc 33.6 GM/DL (32-36); Mean Corpuscular Volume 91.1 FL (87-102); Mean Platelet Volume 10.9 FL (9.6-12.0); Monocytes % 8.3 % (1.7-12.7); Platelet Count 86 T/CUMM (130-400); Red Blood Count 2.81 MC/CUMM (3.8-5.5); Red Cell Distribution Width 15.4 % (9.3-17.3); White Blood Count 9.4 T/CUMM (4-12)
[2019-12-20 05:53] LABS: Albumin 3.1 G/DL (3.4-5.0); Bilirubin,Direct 0.12 MG/DL (0.0-0.20); Bilirubin,Total 0.6 MG/DL (0.2-1.0); Calcium 7.8 MG/DL (8.5-10.1); Osmolality,Calculated 282.5 MOS/KG (273-304); Total Protein 5.5 G/DL (6.4-8.3)
[2019-12-20 05:56] LABS: Hypochromasia 1+; Platelet Estimate Decreased
[2019-12-20 05:57] LABS: Microcytosis Slight
[2019-12-20 06:12] LABS: CKMB % 3.8 %
[2019-12-20] MEDS ORDERED: FUROSEMIDE 40 MG/4 ML VIAL IV ONE (06:13)
[2019-12-20 06:14] LABS: Troponin I 25.8 NG/ML (0.00-0.045)
[2019-12-20] MEDS: POTASSIUM CHLORIDE RIDER 20 MEQ in PREMIX 1 EACH IV PRN (06:27)
[2019-12-20] MEDS: DOBUTamine 500 MG/250 ML PREMIX IV SCH ×2 (06:31→11:56)
[2019-12-20] MEDS ORDERED: HEPARIN/NACL 0.9% 2 UNITS/ML 500 ML IV ONE (07:14)
[2019-12-20] MEDS: ASPIRIN EC 325 MG TABLET PO SCH (08:36)
[2019-12-20] MEDS: PANTOPRAZOLE 40 MG TABLET PO SCH (08:36)
[2019-12-20] MEDS: CHLORHEXIDINE 0.12% ORAL RINSE 60 ML BOTTLE SWISH/SPIT SCH ×2 (08:37→20:53)
[2019-12-20] MEDS: ALBUMIN 5% 12.5 GM in PREMIX 1 EACH IV PRN (11:50)
[2019-12-20] MEDS: SODIUM CHLORIDE 0.45% 1,000 ML IV SCH ×2 (11:50)
[2019-12-20] MEDS: VANCOMYCIN INJ 1,000 MG in SODIUM CHLORIDE 0.9% 250 ML IV SCH (12:03)
[2019-12-20] MEDS: carvediloL 3.125 MG TABLET PO SCH ×2 (12:12→20:51)
[2019-12-20] MEDS: KETOROLAC 30 MG/1 ML VIAL IV PRN (12:13)
[2019-12-20 23:50] LABS: ABG Base Excess 1.7 MMOL/L (-2.5-2.5); ABG Oxygen Saturation 96.5 % (95-100); ABG PCO2 34.4 MM HG (35-48); ABG PO2 93.6 MM HG (80-95); ABG TCO2 26.1 MMOL/L (23-27); Glucose Heart Surgery 143 MG/DL (74-106); Potassium Heart/CVR 3.7 MMOL/L (3.5-5.1)
[2019-12-21] MEDS: INSULIN REGULAR 100 UNIT/ML SUBCUT SCH ×6 (00:26→20:41)
[2019-12-21 04:53] LABS: Basophils % 0.2 % (0.0-0.8); Eosinophils % 0.2 % (0.00-10.9); Hematocrit 25.9 VOL% (35.7-47.0); Hemoglobin 8.7 GM/DL (12.0-16.0); Immature Granulocytes % 0.8 %; Immature Granulocytes Absolute 0.07 #; Lymphocytes # 1.4 10*3/uL (1.4-4.0); Lymphocytes % 15.3 % (21.3-54.2); Mean Corpuscular HGB Conc 33.6 GM/DL (32-36); Mean Corpuscular Volume 91.8 FL (87-102); Mean Platelet Volume 10.7 FL (9.6-12.0); Monocytes % 7.4 % (1.7-12.7); NRBC # 0.02 10*3/uL; Neutrophils % 76.1 % (38.7-73.9); Platelet Count 100 T/CUMM (130-400); Red Blood Count 2.82 MC/CUMM (3.8-5.5); Red Cell Distribution Width 14.9 % (9.3-17.3); White Blood Count 9.3 T/CUMM (4-12)
[2019-12-21] MEDS: MORPHINE 4 MG/1 ML VIAL IV PRN (05:07)
[2019-12-21 05:11] LABS: Bilirubin,Direct 0.14 MG/DL (0.0-0.20); Bilirubin,Total 0.5 MG/DL (0.2-1.0); Calcium 7.8 MG/DL (8.5-10.1); Osmolality,Calculated 282.3 MOS/KG (273-304); Total Protein 5.5 G/DL (6.4-8.3)
[2019-12-21 05:30] LABS: Hypochromasia 1+; Microcytosis Slight; Platelet Estimate Decreased
[2019-12-21 05:31] LABS: Ovalocytes Slight
[2019-12-21 06:35] LABS: CKMB % 2.5 %
[2019-12-21 06:40] LABS: Troponin I 23.6 NG/ML (0.00-0.045)
[2019-12-21] MEDS: POTASSIUM CHLORIDE RIDER 20 MEQ in PREMIX 1 EACH IV PRN (06:58)
[2019-12-21] MEDS ORDERED: POTASSIUM CHLORIDE 20 MEQ TABLET PO PRN (08:32)
[2019-12-21] MEDS ORDERED: ONDANSETRON 4 MG/2 ML VIAL IV PRN (08:32)
[2019-12-21] MEDS ORDERED: MAGNESIUM SULF RIDER 2 GM in PREMIX 1 EACH IV PRN (08:32)
[2019-12-21] MEDS ORDERED: ZALEPLON 5 MG CAPSULE PO PRN (08:32)
[2019-12-21] MEDS ORDERED: MAGNESIUM SULF RIDER 4 GM in PREMIX 1 EACH IV PRN (08:32)
[2019-12-21] MEDS ORDERED: ALUMINUM/MAGNES/SIMETH MAX STR 30 ML UDCUP PO PRN (08:32)
[2019-12-21] MEDS ORDERED: MAGNESIUM HYDROXIDE SUSP 30 ML UDCUP PO PRN (08:32)
[2019-12-21] MEDS ORDERED: DEXTROSE 50% 25 GM/50 ML VIAL IV PRN (08:32)
[2019-12-21] MEDS ORDERED: GLUCAGON 1 MG VIAL IM PRN (08:32)
[2019-12-21] MEDS: KETOROLAC 30 MG/1 ML VIAL IV PRN (08:35)
[2019-12-21] MEDS: PANTOPRAZOLE 40 MG TABLET PO SCH (08:36)
[2019-12-21] MEDS: carvediloL 3.125 MG TABLET PO SCH (08:36)
[2019-12-21] MEDS: ASPIRIN EC 81 MG TABLET PO SCH (08:36)
[2019-12-21] MEDS: CHLORHEXIDINE 0.12% ORAL RINSE 60 ML BOTTLE SWISH/SPIT SCH ×2 (08:37→20:44)
[2019-12-21] MEDS: FERROUS SULFATE 325 MG TABLET PO SCH (08:38)
[2019-12-21] MEDS: DOCUSATE SODIUM 100 MG CAPSULE PO SCH (08:38)
[2019-12-21] MEDS: SODIUM CHLOR 0.45% KCL 20 MEQ 20 MEQ/1,000 ML BAG IV SCH (10:29)
[2019-12-21] MEDS ORDERED: ALBUTEROL/IPRATROPIUM 3 ML NEB RESP TX ONE (14:21)
[2019-12-21] MEDS: ALBUTEROL/IPRATROPIUM 3 ML NEB RESP TX PRN (17:52)
[2019-12-21] MEDS ORDERED: FUROSEMIDE 40 MG/4 ML VIAL IV ONE (19:49)
[2019-12-21] MEDS ORDERED: CLORAZEPATE 3.75 MG TABLET PO ONE (19:52)
[2019-12-21] MEDS: DONEPEZIL 5 MG TABLET PO SCH (20:41)
[2019-12-21] MEDS: ASCORBIC ACID 500 MG TABLET PO SCH (20:42)
[2019-12-21] MEDS: ROSUVASTATIN 20 MG TABLET PO SCH (20:42)
[2019-12-21] MEDS: carvediloL 6.25 MG TABLET PO SCH (20:55)
[2019-12-21] MEDS ORDERED: SIMVASTATIN 10 MG TABLET PO SCH (21:00)
[2019-12-22] MEDS: KETOROLAC 30 MG/1 ML VIAL IV PRN ×3 (00:32→21:57)
[2019-12-22] MEDS: INSULIN REGULAR 100 UNIT/ML SUBCUT SCH ×6 (00:52→21:37)
[2019-12-22] MEDS ORDERED: FUROSEMIDE 40 MG/4 ML VIAL IV ONE ×2 (06:00→14:00)
[2019-12-22 06:36] LABS: Basophils % 0.2 % (0.0-0.8); Eosinophils # 0.1 10*3/uL (0.0-0.87); Eosinophils % 0.8 % (0.00-10.9); Hematocrit 31.5 VOL% (35.7-47.0); Hemoglobin 10.8 GM/DL (12.0-16.0); Immature Granulocytes % 1.2 %; Lymphocytes # 1.5 10*3/uL (1.4-4.0); Mean Corpuscular HGB Conc 34.3 GM/DL (32-36); Mean Corpuscular Volume 90.8 FL (87-102); Mean Platelet Volume 10.3 FL (9.6-12.0); Monocytes % 9.7 % (1.7-12.7); NRBC # 0.05 10*3/uL; Neutrophils % 71.1 % (38.7-73.9); Platelet Count 130 T/CUMM (130-400); Red Blood Count 3.47 MC/CUMM (3.8-5.5); Red Cell Distribution Width 14.6 % (9.3-17.3); White Blood Count 8.6 T/CUMM (4-12)
[2019-12-22 06:49] LABS: Osmolality,Calculated 281.3 MOS/KG (273-304)
[2019-12-22 06:53] LABS: Albumin 2.8 G/DL (3.4-5.0); Bilirubin,Direct 0.19 MG/DL (0.0-0.20); Bilirubin,Indirect 0.5 MG/DL (0.0-1.0); Bilirubin,Total 0.7 MG/DL (0.2-1.0); CKMB % 1.7 %; Calcium 7.9 MG/DL (8.5-10.1); Osmolality,Calculated 277.5 MOS/KG (273-304); Total Protein 5.6 G/DL (6.4-8.3)
[2019-12-22 06:56] LABS: Troponin I 20.1 NG/ML (0.00-0.045)
[2019-12-22] MEDS: SODIUM CHLOR 0.45% KCL 20 MEQ 20 MEQ/1,000 ML BAG IV SCH (07:32)
[2019-12-22] MEDS: DOCUSATE SODIUM 100 MG CAPSULE PO SCH (09:20)
[2019-12-22] MEDS: ASCORBIC ACID 500 MG TABLET PO SCH ×2 (09:20→21:41)
[2019-12-22] MEDS: POTASSIUM CHLORIDE 20 MEQ TABLET PO SCH ×2 (09:20→21:43)
[2019-12-22] MEDS: ASPIRIN EC 81 MG TABLET PO SCH (09:20)
[2019-12-22] MEDS: PANTOPRAZOLE 40 MG TABLET PO SCH (09:21)
[2019-12-22] MEDS: carvediloL 6.25 MG TABLET PO SCH ×2 (09:21→21:40)
[2019-12-22] MEDS: FERROUS SULFATE 325 MG TABLET PO SCH (09:21)
[2019-12-22] MEDS: MAGNESIUM OXIDE 400 MG TABLET PO SCH ×2 (09:21→21:41)
[2019-12-22] MEDS: CHLORHEXIDINE 0.12% ORAL RINSE 60 ML BOTTLE SWISH/SPIT SCH ×2 (09:28→21:42)
[2019-12-22] MEDS: ALBUTEROL/IPRATROPIUM 3 ML NEB RESP TX PRN ×2 (10:02→19:50)
[2019-12-22] MEDS: DONEPEZIL 5 MG TABLET PO SCH (21:40)
[2019-12-22] MEDS: ROSUVASTATIN 20 MG TABLET PO SCH (21:41)
[2019-12-22] MEDS: CLORAZEPATE 3.75 MG TABLET PO PRN (21:56)
[2019-12-23] MEDS: INSULIN REGULAR 100 UNIT/ML SUBCUT SCH ×6 (00:05→22:54)
[2019-12-23] MEDS: ACETAMINOPHEN 325 MG TABLET PO PRN (02:09)
[2019-12-23 06:44] LABS: Basophils % 0.3 % (0.0-0.8); Eosinophils # 0.1 10*3/uL (0.0-0.87); Eosinophils % 1.6 % (0.00-10.9); Hematocrit 31.8 VOL% (35.7-47.0); Hemoglobin 10.6 GM/DL (12.0-16.0); Immature Granulocytes % 1.3 %; Lymphocytes # 1.5 10*3/uL (1.4-4.0); Lymphocytes % 19.5 % (21.3-54.2); Mean Corpuscular HGB Conc 33.3 GM/DL (32-36); Mean Corpuscular Volume 93.8 FL (87-102); Mean Platelet Volume 9.9 FL (9.6-12.0); Monocytes % 9.4 % (1.7-12.7); Neutrophils % 67.9 % (38.7-73.9); Platelet Count 144 T/CUMM (130-400); Red Blood Count 3.39 MC/CUMM (3.8-5.5); Red Cell Distribution Width 14.3 % (9.3-17.3); White Blood Count 7.6 T/CUMM (4-12)
[2019-12-23 07:05] LABS: Albumin 2.8 G/DL (3.4-5.0); Bilirubin,Direct 0.24 MG/DL (0.0-0.20); Bilirubin,Indirect 1.3 MG/DL (0.0-1.0); Bilirubin,Total 1.5 MG/DL (0.2-1.0); Osmolality,Calculated 280.3 MOS/KG (273-304); Total Protein 5.5 G/DL (6.4-8.3)
[2019-12-23 07:07] LABS: Blood Urea Nitrogen 15 MG/DL (7-18); Calcium 7.7 MG/DL (8.5-10.1); Estimated Glom Filtration Rate 90 ML/MIN; Glucose 92 MG/DL (74-106); Osmolality,Calculated 283.1 MOS/KG (273-304)
[2019-12-23] MEDS: POTASSIUM CHLORIDE 20 MEQ TABLET PO SCH ×2 (09:26→22:23)
[2019-12-23] MEDS: carvediloL 6.25 MG TABLET PO SCH ×2 (09:26→22:22)
[2019-12-23] MEDS: ASPIRIN EC 81 MG TABLET PO SCH (09:27)
[2019-12-23] MEDS: MAGNESIUM OXIDE 400 MG TABLET PO SCH ×2 (09:27→22:23)
[2019-12-23] MEDS: FUROSEMIDE 40 MG TABLET PO SCH (09:27)
[2019-12-23] MEDS: DOCUSATE SODIUM 100 MG CAPSULE PO SCH (09:27)
[2019-12-23] MEDS: FERROUS SULFATE 325 MG TABLET PO SCH (09:27)
[2019-12-23] MEDS: PANTOPRAZOLE 40 MG TABLET PO SCH (09:27)
[2019-12-23] MEDS: ASCORBIC ACID 500 MG TABLET PO SCH ×2 (09:27→22:22)
[2019-12-23] MEDS: CHLORHEXIDINE 0.12% ORAL RINSE 60 ML BOTTLE SWISH/SPIT SCH ×2 (09:27→22:54)
[2019-12-23] MEDS ORDERED: ZALEPLON 5 MG CAPSULE PO PRN (10:25)
[2019-12-23] MEDS: KETOROLAC 30 MG/1 ML VIAL IV PRN (10:53)
[2019-12-23] MEDS: ALBUTEROL/IPRATROPIUM 3 ML NEB RESP TX SCH ×2 (14:03→19:03)
[2019-12-23] MEDS: DONEPEZIL 5 MG TABLET PO SCH (22:22)
[2019-12-23] MEDS: traZODone 50 MG TABLET PO SCH (22:22)
[2019-12-23] MEDS: ROSUVASTATIN 20 MG TABLET PO SCH (22:23)
[2019-12-24] MEDS: ACETAMINOPHEN 325 MG TABLET PO PRN (00:57)
[2019-12-24] MEDS: ALBUTEROL/IPRATROPIUM 3 ML NEB RESP TX SCH ×4 (01:21→19:12)
[2019-12-24] MEDS: INSULIN REGULAR 100 UNIT/ML SUBCUT SCH ×4 (01:32→16:41)
[2019-12-24 05:42] LABS: Basophils % 0.4 % (0.0-0.8); Eosinophils # 0.1 10*3/uL (0.0-0.87); Eosinophils % 1.2 % (0.00-10.9); Immature Granulocytes % 1.3 %; Immature Granulocytes Absolute 0.11 #; Lymphocytes # 1.6 10*3/uL (1.4-4.0); Lymphocytes % 18.9 % (21.3-54.2); Mean Corpuscular HGB Conc 33.3 GM/DL (32-36); Mean Corpuscular Volume 93.5 FL (87-102); Monocytes % 8.8 % (1.7-12.7); NRBC # 0.02 10*3/uL; Neutrophils % 69.4 % (38.7-73.9); Platelet Count 165 T/CUMM (130-400); Red Blood Count 3.53 MC/CUMM (3.8-5.5); Red Cell Distribution Width 14.3 % (9.3-17.3); White Blood Count 8.4 T/CUMM (4-12)
[2019-12-24 06:01] LABS: Calcium 8.3 MG/DL (8.5-10.1); Osmolality,Calculated 278.5 MOS/KG (273-304)
[2019-12-24 06:18] LABS: Eosinophils 2 % (0-10); Lymphocytes 17 % (20-55); Myelocytes 1 %; Platelet Estimate Normal; Segmented Neutrophils 79 % (50-85); Total Cells Counted 100
[2019-12-24] MEDS: FERROUS SULFATE 325 MG TABLET PO SCH (08:49)
[2019-12-24] MEDS: PANTOPRAZOLE 40 MG TABLET PO SCH (08:49)
[2019-12-24] MEDS: POTASSIUM CHLORIDE 20 MEQ TABLET PO SCH ×2 (08:49→21:00)
[2019-12-24] MEDS: ASPIRIN EC 81 MG TABLET PO SCH (08:49)
[2019-12-24] MEDS: ASCORBIC ACID 500 MG TABLET PO SCH ×2 (08:50→21:00)
[2019-12-24] MEDS: FUROSEMIDE 40 MG TABLET PO SCH (08:50)
[2019-12-24] MEDS: MAGNESIUM OXIDE 400 MG TABLET PO SCH ×2 (08:50→21:02)
[2019-12-24] MEDS: CHLORHEXIDINE 0.12% ORAL RINSE 60 ML BOTTLE SWISH/SPIT SCH ×2 (08:50→21:02)
[2019-12-24] MEDS: DOCUSATE SODIUM 100 MG CAPSULE PO SCH (08:50)
[2019-12-24] MEDS: carvediloL 6.25 MG TABLET PO SCH ×2 (08:50→21:00)
[2019-12-24] MEDS: KETOROLAC 30 MG/1 ML VIAL IV PRN (10:24)
[2019-12-24] MEDS: GABAPENTIN 100 MG CAPSULE PO SCH ×2 (16:34→21:01)
[2019-12-24] MEDS: DONEPEZIL 5 MG TABLET PO SCH (21:00)
[2019-12-24] MEDS: traZODone 50 MG TABLET PO SCH (21:00)
[2019-12-24] MEDS: ROSUVASTATIN 20 MG TABLET PO SCH (21:01)
[2019-12-25] MEDS: ACETAMINOPHEN 325 MG TABLET PO PRN ×2 (00:02→21:26)
[2019-12-25] MEDS: ALBUTEROL/IPRATROPIUM 3 ML NEB RESP TX SCH ×5 (00:57→22:18)
[2019-12-25] MEDS: INSULIN REGULAR 100 UNIT/ML SUBCUT SCH ×4 (01:37→17:04)
[2019-12-25 05:48] LABS: Basophils % 0.3 % (0.0-0.8); Eosinophils # 0.1 10*3/uL (0.0-0.87); Eosinophils % 1.6 % (0.00-10.9); Hematocrit 30.9 VOL% (35.7-47.0); Hemoglobin 10.3 GM/DL (12.0-16.0); Immature Granulocytes % 1.4 %; Immature Granulocytes Absolute 0.11 #; Lymphocytes # 1.4 10*3/uL (1.4-4.0); Lymphocytes % 18.5 % (21.3-54.2); Mean Corpuscular HGB Conc 33.3 GM/DL (32-36); Mean Corpuscular Volume 93.9 FL (87-102); Mean Platelet Volume 9.9 FL (9.6-12.0); Monocytes % 8.2 % (1.7-12.7); Platelet Count 173 T/CUMM (130-400); Red Blood Count 3.29 MC/CUMM (3.8-5.5); Red Cell Distribution Width 14.4 % (9.3-17.3); White Blood Count 7.7 T/CUMM (4-12)
[2019-12-25 06:05] LABS: Osmolality,Calculated 274.7 MOS/KG (273-304)
[2019-12-25 06:11] LABS: Alanine Aminotransferase 60 U/L (13-56); Albumin 2.7 G/DL (3.4-5.0); Alkaline Phosphatase 112 U/L (45-117); Aspartate Amino Transferase 31 U/L (0-37); Bilirubin,Indirect 1.3 MG/DL (0.0-1.0); Blood Urea Nitrogen 10 MG/DL (7-18); Calcium 7.9 MG/DL (8.5-10.1); Estimated Glom Filtration Rate 84 ML/MIN; Glucose 108 MG/DL (74-106); Osmolality,Calculated 278.4 MOS/KG (273-304); Total Protein 5.2 G/DL (6.4-8.3)
[2019-12-25] MEDS: FUROSEMIDE 40 MG TABLET PO SCH ×2 (10:04→21:25)
[2019-12-25] MEDS: carvediloL 6.25 MG TABLET PO SCH (10:05)
[2019-12-25] MEDS: GABAPENTIN 100 MG CAPSULE PO SCH ×3 (10:06→21:25)
[2019-12-25] MEDS: ASPIRIN EC 81 MG TABLET PO SCH (10:07)
[2019-12-25] MEDS: FERROUS SULFATE 325 MG TABLET PO SCH (10:08)
[2019-12-25] MEDS: ASCORBIC ACID 500 MG TABLET PO SCH ×2 (10:09→21:26)
[2019-12-25] MEDS: DOCUSATE SODIUM 100 MG CAPSULE PO SCH (10:09)
[2019-12-25] MEDS: MAGNESIUM OXIDE 400 MG TABLET PO SCH ×2 (10:10→21:25)
[2019-12-25] MEDS: PANTOPRAZOLE 40 MG TABLET PO SCH (10:10)
[2019-12-25] MEDS: POTASSIUM CHLORIDE 20 MEQ TABLET PO SCH ×2 (10:15→21:25)
[2019-12-25] MEDS: CHLORHEXIDINE 0.12% ORAL RINSE 60 ML BOTTLE SWISH/SPIT SCH ×2 (10:24→21:36)
[2019-12-25] MEDS: carvediloL 3.125 MG TABLET PO SCH (21:25)
[2019-12-25] MEDS: DONEPEZIL 5 MG TABLET PO SCH (21:25)
[2019-12-25] MEDS: ROSUVASTATIN 20 MG TABLET PO SCH (21:25)
[2019-12-25] MEDS: traZODone 50 MG TABLET PO SCH (21:26)
[2019-12-25] MEDS: CLORAZEPATE 3.75 MG TABLET PO PRN (21:26)
[2019-12-26] MEDS: INSULIN REGULAR 100 UNIT/ML SUBCUT SCH ×2 (00:19→08:16)
[2019-12-26 05:18] LABS: Basophils % 0.3 % (0.0-0.8); Eosinophils # 0.1 10*3/uL (0.0-0.87); Eosinophils % 1.3 % (0.00-10.9); Hematocrit 30.3 VOL% (35.7-47.0); Hemoglobin 10.1 GM/DL (12.0-16.0); Immature Granulocytes % 1.2 %; Immature Granulocytes Absolute 0.08 #; Lymphocytes # 1.2 10*3/uL (1.4-4.0); Mean Corpuscular HGB Conc 33.3 GM/DL (32-36); Mean Corpuscular Volume 93.5 FL (87-102); Mean Platelet Volume 9.6 FL (9.6-12.0); Monocytes % 9.2 % (1.7-12.7); Platelet Count 188 T/CUMM (130-400); Red Blood Count 3.24 MC/CUMM (3.8-5.5); Red Cell Distribution Width 14.3 % (9.3-17.3); White Blood Count 6.8 T/CUMM (4-12)
[2019-12-26 05:30] LABS: Calcium 7.9 MG/DL (8.5-10.1); Osmolality,Calculated 275.5 MOS/KG (273-304)
[2019-12-26 05:54] LABS: Alanine Aminotransferase 49 U/L (13-56); Albumin 2.8 G/DL (3.4-5.0); Alkaline Phosphatase 99 U/L (45-117); Aspartate Amino Transferase 25 U/L (0-37); Bilirubin,Indirect 0.4 MG/DL (0.0-1.0); Blood Urea Nitrogen 9 MG/DL (7-18); Estimated Glom Filtration Rate 81 ML/MIN; Glucose 107 MG/DL (74-106); Osmolality,Calculated 281.1 MOS/KG (273-304); Total Protein 5.7 G/DL (6.4-8.3)
[2019-12-26] MEDS: ALBUTEROL/IPRATROPIUM 3 ML NEB RESP TX SCH (06:55)
[2019-12-26] MEDS: MAGNESIUM OXIDE 400 MG TABLET PO SCH (08:21)
[2019-12-26] MEDS: FUROSEMIDE 40 MG TABLET PO SCH (08:21)
[2019-12-26] MEDS: ASCORBIC ACID 500 MG TABLET PO SCH (08:21)
[2019-12-26] MEDS: ASPIRIN EC 81 MG TABLET PO SCH (08:21)
[2019-12-26] MEDS: GABAPENTIN 100 MG CAPSULE PO SCH (08:21)
[2019-12-26] MEDS: POTASSIUM CHLORIDE 20 MEQ TABLET PO SCH (08:21)
[2019-12-26] MEDS: DOCUSATE SODIUM 100 MG CAPSULE PO SCH (08:22)
[2019-12-26] MEDS: FERROUS SULFATE 325 MG TABLET PO SCH (08:22)
[2019-12-26] MEDS: CHLORHEXIDINE 0.12% ORAL RINSE 60 ML BOTTLE SWISH/SPIT SCH (08:22)
[2019-12-26] MEDS: carvediloL 3.125 MG TABLET PO SCH (08:22)
[2019-12-26] MEDS: PANTOPRAZOLE 40 MG TABLET PO SCH (08:22)
[2019-12-26 08:49] VITALS: BP 122/61
[2019-12-26] MEDS ORDERED: MULTIVITAMIN (BEROCCA) TABLET PO SCH (09:00)
[2019-12-26] MEDS: ACETAMINOPHEN 325 MG TABLET PO PRN (09:50)
== END 2019-12-26 13:13 | disposition home health service (06) | DRG 234 ==
LOC: N.TELES 17:12 → INTOOBSV 17:12 → SUATTDRO 17:12 → N.CVR 12-18 12:09 → N.ICU 12-19 17:04 → N.TELES 12-21 12:44
PROVIDERS: ADMIT Internal Medicine

== ENCOUNTER 2020-01-09 06:10 | Inpatient (IN) ==
[2020-01-09] MEDS ORDERED: fentaNYL 100 MCG/2 ML VIAL IV STA (06:31)
[2020-01-09] MEDS ORDERED: ONDANSETRON 4 MG/2 ML VIAL IV STA (06:32)
[2020-01-09 07:00] LABS: Basophils % 0.4 % (0.0-0.8); Eosinophils # 0.1 10*3/uL (0.0-0.87); Eosinophils % 0.7 % (0.00-10.9); Hematocrit 34.6 VOL% (35.7-47.0); Immature Granulocytes % 0.8 %; Immature Granulocytes Absolute 0.07 #; Lymphocytes % 10.7 % (21.3-54.2); Mean Corpuscular HGB Conc 37.3 GM/DL (32-36); Mean Corpuscular Volume 82.4 FL (87-102); Monocytes % 9.9 % (1.7-12.7); Neutrophils % 77.5 % (38.7-73.9); Platelet Count 345 T/CUMM (130-400); White Blood Count 9.1 T/CUMM (4-12)
[2020-01-09 07:05] LABS: Hemoglobin 12.9 GM/DL (12.0-16.0)
[2020-01-09 07:12] LABS: Albumin 3.8 G/DL (3.4-5.0); Bilirubin,Total 1.4 MG/DL (0.2-1.0); Calcium 8.9 MG/DL (8.5-10.1); Osmolality,Calculated 232.3 MOS/KG (273-304); Total Protein 8.4 G/DL (6.4-8.3)
[2020-01-09] MEDS ORDERED: POTASSIUM CHLORIDE 20 MEQ TABLET PO STA (07:24)
[2020-01-09] MEDS ORDERED: SODIUM CHLOR 0.9% KCL 40 MEQ 40 MEQ/1,000 ML BAG IV SCH (07:30)
[2020-01-09] MEDS ORDERED: GLUCAGON 1 MG VIAL IM PRN (08:32)
[2020-01-09] MEDS ORDERED: DEXTROSE 50% 25 GM/50 ML VIAL IV PRN (08:32)
[2020-01-09] MEDS ORDERED: ONDANSETRON 4 MG/2 ML VIAL IV PRN (08:32)
[2020-01-09] MEDS ORDERED: diphenhydrAMINE CAP 25 MG CAPSULE PO PRN (08:32)
[2020-01-09] MEDS: ENOXAPARIN 40 MG/0.4 ML SYRINGE SUBCUT SCH (09:20)
[2020-01-09 10:35] LABS: Bilirubin,Urine Negative (Negative); Blood, Urine Negative (Negative); Glucose,Urine (UA) Negative (Negative); Hyaline Casts,Urine 7 /LPF (0-3); Ketones,Urine Negative (Negative); Mucus,Urine Occasional /LPF (Occasional); Nitrite,Urine Negative (Negative); Protein,Urine Negative; RBC,Urine 1 /HPF (0-4); Squamous Epithelial Cell,Urine Occasional /HPF (0-10); Urine Appearance CLEAR (Clear); Urine Color Yellow (Yellow); Urine Specific Gravity 1.006 (1.001-1.035); Urine Urobilinogen < 2.0 EU/DL (0.2-1.0); WBC,Urine <1 /HPF (0-6)
[2020-01-09] MEDS: ACETAMINOPHEN 325 MG TABLET PO PRN ×2 (10:55→21:34)
[2020-01-09] MEDS: INSULIN LISPRO 100 UNIT/ML SUBCUT SCH ×3 (11:43→21:33)
[2020-01-09] MEDS: SODIUM CHLOR 0.9% KCL 40 MEQ 40 MEQ/1,000 ML BAG IV SCH ×2 (11:43→11:45)
[2020-01-09] MEDS: MEROPENEM 500 MG in SODIUM CHLORIDE 0.9% 100 ML IV SCH ×2 (14:12→21:33)
[2020-01-09] MEDS: POTASSIUM CHLORIDE 20 MEQ TABLET PO SCH ×2 (15:15→21:38)
[2020-01-09] MEDS: GABAPENTIN 100 MG CAPSULE PO SCH ×2 (15:15→21:33)
[2020-01-09] MEDS ORDERED: traMADol 50 MG TABLET PO PRN (16:20)
[2020-01-09 17:02] LABS: Calcium 8.2 MG/DL (8.5-10.1); Osmolality,Calculated 241.8 MOS/KG (273-304)
[2020-01-09] MEDS: carvediloL 6.25 MG TABLET PO SCH (21:33)
[2020-01-09] MEDS: DONEPEZIL 5 MG TABLET PO SCH (21:33)
[2020-01-09] MEDS: DOXYCYCLINE HYCLATE 100 MG CAPSULE PO SCH (21:38)
[2020-01-10] MEDS: SODIUM CHLOR 0.9% KCL 40 MEQ 40 MEQ/1,000 ML BAG IV SCH ×4 (02:25→22:03)
[2020-01-10] MEDS: ACETAMINOPHEN 325 MG TABLET PO PRN ×2 (04:35→09:31)
[2020-01-10] MEDS: MEROPENEM 500 MG in SODIUM CHLORIDE 0.9% 100 ML IV SCH ×3 (05:47→22:04)
[2020-01-10 06:29] LABS: Basophils % 0.7 % (0.0-0.8); Eosinophils % 0.9 % (0.00-10.9); Hematocrit 32.1 VOL% (35.7-47.0); Hemoglobin 11.2 GM/DL (12.0-16.0); Immature Granulocytes % 1.6 %; Immature Granulocytes Absolute 0.07 #; Lymphocytes # 1.1 10*3/uL (1.4-4.0); Lymphocytes % 24.4 % (21.3-54.2); Mean Corpuscular HGB Conc 34.9 GM/DL (32-36); Mean Platelet Volume 9.3 FL (9.6-12.0); Monocytes % 15.3 % (1.7-12.7); Neutrophils % 57.1 % (38.7-73.9); Platelet Count 274 T/CUMM (130-400); Red Blood Count 3.69 MC/CUMM (3.8-5.5); Red Cell Distribution Width 13.9 % (9.3-17.3); White Blood Count 4.3 T/CUMM (4-12)
[2020-01-10 07:03] LABS: Bilirubin,Total 0.6 MG/DL (0.2-1.0); Calcium 8.3 MG/DL (8.5-10.1); Osmolality,Calculated 260.7 MOS/KG (273-304); Thyroid Stimulating Hormone 1.53 uIU/ml (0.358-3.74); Total Protein 6.7 G/DL (6.4-8.3)
[2020-01-10] MEDS: DOXYCYCLINE HYCLATE 100 MG CAPSULE PO SCH ×2 (09:21→22:15)
[2020-01-10] MEDS: GABAPENTIN 100 MG CAPSULE PO SCH ×3 (09:21→22:14)
[2020-01-10] MEDS: ENOXAPARIN 40 MG/0.4 ML SYRINGE SUBCUT SCH (09:21)
[2020-01-10] MEDS: ASPIRIN EC 81 MG TABLET PO SCH (09:22)
[2020-01-10] MEDS: INSULIN LISPRO 100 UNIT/ML SUBCUT SCH ×4 (09:23→22:15)
[2020-01-10] MEDS: carvediloL 6.25 MG TABLET PO SCH ×2 (09:30→22:14)
[2020-01-10] MEDS ORDERED: MAGNESIUM HYDROXIDE SUSP 30 ML UDCUP PO PRN (09:51)
[2020-01-10] MEDS ORDERED: ROSUVASTATIN 20 MG TABLET PO SCH (21:00)
[2020-01-10] MEDS: DONEPEZIL 5 MG TABLET PO SCH (22:15)
[2020-01-11] MEDS: MEROPENEM 500 MG in SODIUM CHLORIDE 0.9% 100 ML IV SCH ×2 (05:18→12:09)
[2020-01-11] MEDS: ACETAMINOPHEN 325 MG TABLET PO PRN (05:18)
[2020-01-11 05:33] LABS: Basophils % 0.7 % (0.0-0.8); Eosinophils # 0.1 10*3/uL (0.0-0.87); Eosinophils % 1.4 % (0.00-10.9); Hematocrit 34.1 VOL% (35.7-47.0); Hemoglobin 11.6 GM/DL (12.0-16.0); Immature Granulocytes % 0.9 %; Immature Granulocytes Absolute 0.05 #; Lymphocytes # 1.5 10*3/uL (1.4-4.0); Lymphocytes % 26.3 % (21.3-54.2); Mean Corpuscular Volume 90.2 FL (87-102); Mean Platelet Volume 9.1 FL (9.6-12.0); Monocytes % 9.1 % (1.7-12.7); Neutrophils % 61.6 % (38.7-73.9); Platelet Count 300 T/CUMM (130-400); Red Blood Count 3.78 MC/CUMM (3.8-5.5); Red Cell Distribution Width 14.6 % (9.3-17.3); White Blood Count 5.6 T/CUMM (4-12)
[2020-01-11 05:51] LABS: Albumin 3.3 G/DL (3.4-5.0); Bilirubin,Total 0.8 MG/DL (0.2-1.0); Calcium 8.9 MG/DL (8.5-10.1); Osmolality,Calculated 260.5 MOS/KG (273-304); Total Protein 7.2 G/DL (6.4-8.3)
[2020-01-11 08:47] VITALS: BP 103/60
[2020-01-11] MEDS ORDERED: GLIMEPIRIDE 2 MG TABLET PO PRN ×2 (08:56→11:13)
[2020-01-11] MEDS ORDERED: ASCORBIC ACID 500 MG TABLET PO SCH (09:00)
[2020-01-11] MEDS ORDERED: MULTIVITAMIN (CENTRUM) TABLET PO SCH (09:00)
[2020-01-11] MEDS ORDERED: POTASSIUM CHLORIDE 10 MEQ TABLET PO SCH (09:00)
[2020-01-11] MEDS ORDERED: FUROSEMIDE 40 MG TABLET PO SCH (09:00)
[2020-01-11] MEDS: INSULIN LISPRO 100 UNIT/ML SUBCUT SCH ×2 (09:05→13:10)
[2020-01-11] MEDS: GABAPENTIN 100 MG CAPSULE PO SCH (09:46)
[2020-01-11] MEDS: carvediloL 6.25 MG TABLET PO SCH (09:47)
[2020-01-11] MEDS: DOXYCYCLINE HYCLATE 100 MG CAPSULE PO SCH (09:47)
[2020-01-11] MEDS: ASPIRIN EC 81 MG TABLET PO SCH (09:47)
[2020-01-11] MEDS: ENOXAPARIN 40 MG/0.4 ML SYRINGE SUBCUT SCH (09:48)
[2020-01-11 15:41] LABS: Osmolality, Serum 241 mOsm/kg (275 - 295)
[2020-01-11 16:05] LABS: Osmolality, Urine 235 mOsm/kg (150 - 1150)
[2020-01-14] MEDS ORDERED: CHOLECALCIFEROL 1,000 UNIT TABLET PO SCH (09:00)
== END 2020-01-11 13:17 | disposition home health service (06) | DRG 641 ==
LOC: N.ED 06:10 → N.EDINP 08:32 → SUATTDRO 08:32 → N.EDINP 10:58 → N.TELEN 11:05
PROVIDERS: ADMIT Hospitalist; ATTEND Internal Medicine